=== PATIENT | female | born 1955 | race Caucasian/White ===

== ENCOUNTER → 2017-12-02 | Outpatient (CLI) | payer OTHER, MEDICAID | LOC: M.RAD 14:00 | DX: N60.02 Solitary cyst of left breast (principal) ==

== ENCOUNTER → 2017-12-30 | Outpatient (CLI) | payer OTHER, MEDICAID ==
--- NOTE | 2017-12-31 15:27 | S ---
[place] [address] SURGICAL PATH RPT PROCEDURE Name: TSERING ROSEN Room: [facility]#: [id number] Admission: 12/30/17 Date of : 57 Discharge: Report #: [id number] Path Case #: [id number] PATHOLOGY REPORT COLLECTION DATE: 12/30/2017 RECEIVED DATE: 12/30/2017 SUBMITTING PHYS: Dr. Lia Fabian OTHER PHYS: Dr. Raphael Haji SPECIMEN(S) RECEIVED: A.L breast * * * * * * * * * * * * FINAL DIAGNOSIS: Breast, "left breast needle core biopsies for calcification": - Fibroadenomatous nodule measuring 0.5 cm with coarse microcalcifications. (see comment) COMMENT: This case was also reviewed by Dr. Robyn Adam. ([facility]; 12/31/2017) PATHOLOGIST: Raul Desai M.D. REPORT ELECTRONICALLY SIGNED BY: Raul Desai M.D. DATE/TIME: 12/31/2017 15:27 * * * * * * * * * * * * GROSS PATHOLOGY: Received in formalin labeled "Tsering Rosen, left breast calcifications," are multiple needle cores of yellow-andre fibrofatty tissue measuring 3.0 x 5.4 x 0.8 cm in aggregate dimensions. Also received is a plastic cassette containing multiple cores of yellow-andre fibrofatty tissue measuring 1.5 x 1.4 x 0.6 cm in aggregate dimensions. The tissue in the cassette is transferred to cassette A3, and the remaining tissue is submitted in its entirety in cassette A1 and A2. The cold ischemic time is 3 minutes. The total formalin fixation time is 11 hours and 7 minutes. ([facility]; 12/30/2017) CLINICAL HISTORY: Left breast stereotactic biopsy for calcifications INITIAL CPT CODE(S): A; 07852 Professional services performed by [facility] [place] [address] SURGICAL PATH RPT PROCEDURE Name: TSERING ROSEN Room: [facility]#: [id number] Admission: 12/30/17 Date of : 57 Discharge: Report #: [id number] Path Case #: [id number] [address] [place] [address] [facility] by [email or web address] at [address] [place] [address], [facility] [address] [address]. [facility] [address] [place] [address] PHONE: [phone] DIRECTOR: Familia Lopez M.D. * * * END OF REPORT * * *
== END ==
LOC: M.ULTRA 12-13 11:45
DX: C50.911 Malignant neoplasm of unspecified site of right female breast (principal); R92.0 Mammographic microcalcification found on diagnostic imaging of breast

== ENCOUNTER → 2020-10-21 | Outpatient (CLI) | payer MEDICARE, MEDICAID | LOC: M.LAB 08:05 | PROVIDERS: ATTEND Anesthesiology | DX: E87.6 Hypokalemia (principal) ==